=== PATIENT | male | born 2000 | race Caucasian/White ===

== ENCOUNTER 2023-06-01 18:32 | Emergency (ER) | payer OTHER ==
[~2023-06-01] VITALS: Ht 187 cm; Wt 72.0 kg
[2023-06-01] MEDS ORDERED: NS IV 1000 ML 1,000 ML IV SCH (19:00)
--- NOTE | 2023-06-01 19:05 | ED Syncope ---
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 FRIENDS REPORT PT BECAME PALE, DIAPHORETIC AFTER INJURY, "PASSED OUT ET HAD A SEIZURE". PT CURRENTLY PALE, A/O X3, ANSWERS ALL QUESTIONS APPROPRIATELY. NO OTHER C/O VOICED. Source of Information: Patient, Other (friend) Exam Limitations: No Limitations History of Present Illness Date Seen by Provider: Jun 01, 2023 Time Seen by Provider: 18:45 Initial Comments 22-year-old male presents to the ER with his friend for a syncopal episode. Patient's friend states that they were playing basketball and patient rolled his left ankle, he was standing next to the wall and became pale and went to the floor. Patient's friend states that his whole body was shaking, but not convulsing. States that he was not responsive while he was shaking. When he came to, he started vomiting. Patient's friend reports he vomited approximately 3-5 times. Patient's friend states he did not hit his head. Patient currently complains of intermittent dizziness and intermittent nausea. At the moment he is only complaining of left ankle pain, though he does appear mildly pale. Denies fevers, chest pain, shortness of air, abdominal pain. Denies a seizure history or any other medical history. Allergies and Home Medications Allergies Coded Allergies: No Known Drug Allergies (Unverified , 06/01/23) Patient Home Medication List Home Medication List Reviewed: Yes Review of Systems Constitutional: see HPI Past Siozblo-Sfduvz-Egkrqc Hx Patient Social History Tobacco Use?: No Use of E-Cig and/or Vaping dev: No Substance use?: No Alcohol Use?: No Pt feels they are or have been: No Past Medical History Surgery/Hospitalization HX: DENIED Physical Exam Vital Signs Vital Signs - First Documented 06/01/23 18:42 Temp 36.6 Pulse 56 Resp 16 B/P (MAP) 114/90 (98) Pulse Ox 99 O2 Delivery Room Air Capillary Refill : Height, Weight, BMI Height: '" Weight: lbs. oz. 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 Norm as Tested Cranial Nerves: Normal Hearing, Normal Speech, PERRL Motor/Sensory: No Motor Deficit, No Sensory Deficit Skin: Warm/Dry, Pallor (Mildly pale) Focused Exam Lactate Level 06/01/23 19:11: Lactic Acid Level 1.23 Lactic Acid Level Laboratory Tests Test 06/01/23 19:11 Lactic Acid Level 1.23 MMOL/L (0.50-2.00) Progress/Results/Core Measures Results/Orders Lab Results Laboratory Tests Test 06/01/23 19:05 06/01/23 19:11 Range/Units White Blood Count 4.4 4.3-11.0 10^3/uL Red Blood Count 4.91 4.30-5.52 10^6/uL Hemoglobin 15.8 13.3-17.7 g/dL Hematocrit 45 40-54 % Mean Corpuscular Volume 91 80-99 fL Mean Corpuscular Hemoglobin 32 25-34 pg Mean Corpuscular Hemoglobin Concent 35 32-36 g/dL Red Cell Distribution Width 12.1 10.0-14.5 % Platelet Count 249 130-400 10^3/uL Mean Platelet Volume 11.1 9.0-12.2 fL Immature Granulocyte % (Auto) 0 % Neutrophils (%) (Auto) 56 42-75 % Lymphocytes (%) (Auto) 33 12-44 % Monocytes (%) (Auto) 9 0-12 % Eosinophils (%) (Auto) 2 0-10 % Basophils (%) (Auto) 1 0-10 % Neutrophils # (Auto) 2.5 1.8-7.8 10^3/uL Lymphocytes # (Auto) 1.5 1.0-4.0 10^3/uL Monocytes # (Auto) 0.4 0.0-1.0 10^3/uL Eosinophils # (Auto) 0.1 0.0-0.3 10^3/uL Basophils # (Auto) 0.0 0.0-0.1 10^3/uL Immature Granulocyte # (Auto) 0.0 0.0-0.1 10^3/uL Sodium Level 141 135-145 MMOL/L Potassium Level 3.6 3.6-5.0 MMOL/L Chloride Level 106 98-107 MMOL/L Carbon Dioxide Level 27 21-32 MMOL/L Anion Gap 8 5-14 MMOL/L Blood Urea Nitrogen 11 7-18 MG/DL Creatinine 0.93 0.60-1.30 MG/DL Estimat Glomerular Filtration Rate 118 BUN/Creatinine Ratio 12 Glucose Level 92 70-105 MG/DL Lactic Acid Level 1.23 0.50-2.00 MMOL/L Calcium Level 9.0 8.5-10.1 MG/DL Corrected Calcium 8.8 8.5-10.1 MG/DL Magnesium Level 2.1 1.6-2.4 MG/DL Total Bilirubin 4.0 H 0.1-1.0 MG/DL Aspartate Amino Transf (AST/SGOT) 13 5-34 U/L Alanine Aminotransferase (ALT/SGPT) 11 0-55 U/L Alkaline Phosphatase 73 40-136 U/L Troponin I < 0.028 <0.028 NG/ML Total Protein 6.7 6.4-8.2 GM/DL Albumin 4.3 3.2-4.5 GM/DL My Orders Orders - 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[employer] 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 Cbc With Automated Diff (06/01/23 18:54) Magnesium (06/01/23 18:54) Ekg Tracing (06/01/23 18:54) Comprehensive Metabolic Panel (06/01/23 18:54) Monitor-Rhythm Ecg Trace Only (06/01/23 18:54) Ed Iv/Invasive Line Start (06/01/23 18:54) Lactic Acid Analyzer (06/01/23 18:54) Ns Iv 1000 Ml (Ns Iv 1000 Ml) (06/01/23 19:00) Ankle, Left, 3 Views (06/01/23 18:55) Troponin I [place] (06/01/23 19:06) Hepatitis Panel Acute (06/01/23 20:40) Vital Signs/I&O 06/01/23 06/01/23 18:42 21:35 Temp 36.6 Pulse 56 64 Resp 16 16 B/P (MAP) 114/90 (98) 127/58 Pulse Ox 99 99 O2 Delivery Room Air Room Air 06/02/23 00:00 Intake Total 1000 ml Balance 1000 ml Blood Pressure Mean: 98 Progress Progress Note : Progress Note Patient seen and evaluated, resting in bed, no acute distress, mildly pale. Based on exam and symptoms, work-up initiated including CBC, CMP, magnesium, EKG, x-ray of left ankle. IV fluids ordered. 2038 Labs and x-ray reviewed. X-ray negative for acute fracture. CBC grossly normal. Lactic acid normal. CMP grossly normal, except for elevated bilirubin 4.0. Patient denies abdominal pain, states he still has his gallbladder. I called and spoke with Dr. Acosta regarding patient's elevated bilirubin. He states that sometimes when people are exercising and have a sudden drop in blood pressure it causes shock liver which results in decreased blood flow to the liver, and when the blood flow returns, it excretes a higher amount of bilirubin. He states that he wants labs repeated including CBC, CMP, amylase, lipase this 06/03/2023, and he would like to see the patient in the office on this 06/04/2023. I have also added on a hepatitis panel to his labs today. I do not believe that patient had a seizure based on description from friend and normal lactic acid. 2114 results discussed with patient. Plan of care discussed with patient. Patient reports that he is feeling better. Patient appears better. Will discharge with Familia bandage and crutches. Patient given outpatient order form and instructions to get labs drawn on Friday and to see Dr. Acosta on Friday. Patient verbalized understanding. Discharge instructions and return precautions provided. Initial ECG Impression Date: Jun 01, 2023 Initial ECG Impression Time: 19:01 Initial ECG Rate: 45 Initial ECG Rhythm: S.Josiah Initial ECG Intervals: Normal Initial ECG Impression: Normal Initial ECG Comparisson: No Previous ECG Available Departure Impression Primary Impression: Syncope Additional Impressions: Elevated bilirubin Ankle sprain Disposition: HOME, SELF-CARE Condition: Stable Departure-Patient Inst. Decision time for Depature: 21:05 Referrals: ELOISE ACOSTA MD Patient Instructions: Syncope (Fainting) (DC) Add. Discharge Instructions: Go to outpatient lab on Friday of this week to have your blood test repeated. Bring your order form with you. Call Dr. Acosta's office tomorrow to schedule an appointment for Friday. When you call to schedule appointment, tell them that Dr. Acosta wants to see you this week on Friday. Wear the Familia bandage and use the crutches to keep the weight off of your foot. Apply ice to your ankle 20 minutes at a time several times a day for the next couple days. Take 800 mg of ibuprofen every 8 hours with food as needed for pain. Avoid Tylenol due to the abnormal liver test. The hepatitis panel is a send out, somebody will call you with the results of this if they are abnormal. If you do not get a phone call, and would like to know the results, you can call medical records. Return for any new, concerning, or worsening symptoms. All discharge instructions reviewed with patient and/or family. Voiced understanding. DIALLO POWELL APRN Jun 01, 2023 19:05
[2023-06-01 19:14] LABS: BASOPHILS % (AUTO) 1 % (0-10); EOSINOPHILS # (AUTO) 0.1 10^3/uL (0.0-0.3); EOSINOPHILS % (AUTO) 2 % (0-10); HEMATOCRIT 45 % (40-54); HEMOGLOBIN 15.8 g/dL (13.3-17.7); LYMPHOCYTES # (AUTO) 1.5 10^3/uL (1.0-4.0); LYMPHOCYTES % (AUTO) 33 % (12-44); MEAN CORPUSCULAR HEMOGLOBIN 32 pg (25-34); MEAN CORPUSCULAR HGB CONC 35 g/dL (32-36); MEAN CORPUSCULAR VOLUME 91 fL (80-99); MEAN PLATELET VOLUME 11.1 fL (9.0-12.2); MONOCYTES # (AUTO) 0.4 10^3/uL (0.0-1.0); MONOCYTES % (AUTO) 9 % (0-12); NEUTROPHILS # (AUTO) 2.5 10^3/uL (1.8-7.8); NEUTROPHILS % (AUTO) 56 % (42-75); PLATELET COUNT 249 10^3/uL (130-400); WHITE BLOOD COUNT 4.4 10^3/uL (4.3-11.0)
--- NOTE | 2023-06-01 19:21 | Diagnostic Imaging Report ---
INDICATION: Left ankle pain and swelling. FINDINGS: Alignment of the ankle is normal. Distal tibia and fibula demonstrate no cortical disruption or acute fracture. There is no widening of the ankle mortise. The talar dome is normal in morphology. The visualized portion of the foot is unremarkable. There is diffuse ankle swelling centered around the lateral malleolus. IMPRESSION: Lateral left ankle swelling without finding of fracture or malalignment. Dictated by: Dictated on workstation # [id number]
[2023-06-01 20:08] LABS: ALANINE AMINOTRANSFERASE 11 U/L (0-55); ALBUMIN 4.3 GM/DL (3.2-4.5); ALKALINE PHOSPHATASE 73 U/L (40-136); BUN/CREATININE RATIO 12; CARBON DIOXIDE 27 MMOL/L (21-32); CHLORIDE 106 MMOL/L (98-107); CREATININE SERUM 0.93 MG/DL (0.60-1.30); GFR ESTIMATED 118; GLUCOSE 92 MG/DL (70-105); MAGNESIUM 2.1 MG/DL (1.6-2.4); POTASSIUM 3.6 MMOL/L (3.6-5.0); SODIUM 141 MMOL/L (135-145); TOTAL PROTEIN 6.7 GM/DL (6.4-8.2)
[2023-06-01 21:35] VITALS: BP 127/58
[2023-06-02 21:38] LABS: HEPATITIS C ANTIBODY C Non-Reactive (Non-Reactive)
== END 2023-06-01 21:35 | disposition home or self-care (01) ==
LOC: ER 18:37
DX: S93.402A Sprain of unspecified ligament of left ankle, initial encounter (principal); R55 Syncope and collapse; E80.7 Disorder of bilirubin metabolism, unspecified; X50.1XXA Overexertion from prolonged static or awkward postures, initial encounter; Y93.67 Activity, basketball
CPT/HCPCS: 36415; 73610; 80053; 80074; 83605; 83735; 84484; 85025; 93005; 93041

== ENCOUNTER → 2023-06-04 | Outpatient (CLI) | payer OTHER ==
[2023-06-04 12:29] LABS: BASOPHILS % (AUTO) 1 % (0-10); EOSINOPHILS # (AUTO) 0.1 10^3/uL (0.0-0.3); EOSINOPHILS % (AUTO) 2 % (0-10); HEMATOCRIT 42 % (40-54); HEMOGLOBIN 14.6 g/dL (13.3-17.7); LYMPHOCYTES # (AUTO) 1.3 10^3/uL (1.0-4.0); LYMPHOCYTES % (AUTO) 29 % (12-44); MEAN CORPUSCULAR HEMOGLOBIN 32 pg (25-34); MEAN CORPUSCULAR HGB CONC 35 g/dL (32-36); MEAN CORPUSCULAR VOLUME 93 fL (80-99); MEAN PLATELET VOLUME 10.8 fL (9.0-12.2); MONOCYTES # (AUTO) 0.4 10^3/uL (0.0-1.0); MONOCYTES % (AUTO) 9 % (0-12); NEUTROPHILS # (AUTO) 2.7 10^3/uL (1.8-7.8); NEUTROPHILS % (AUTO) 60 % (42-75); PLATELET COUNT 233 10^3/uL (130-400); WHITE BLOOD COUNT 4.4 10^3/uL (4.3-11.0)
[2023-06-04 12:47] LABS: ALBUMIN 4.1 GM/DL (3.2-4.5); BILIRUBIN,TOTAL 3.7 MG/DL (0.1-1.0); CALCIUM 8.7 MG/DL (8.5-10.1); CREATININE SERUM 0.87 MG/DL (0.60-1.30); POTASSIUM 3.9 MMOL/L (3.6-5.0); TOTAL PROTEIN 6.5 GM/DL (6.4-8.2)
== END ==
LOC: LAB 12:01
PROVIDERS: ATTEND Emergency Medicine
DX: E80.7 Disorder of bilirubin metabolism, unspecified (principal)
CPT/HCPCS: 36415; 80053; 82150; 83690; 85025